=== PATIENT | female | born 1990 | race Caucasian/White ===

== ENCOUNTER 2017-05-10 13:32 | Emergency (ER) | payer BC ==
--- NOTE | 2017-05-10 15:03 | ER Document Report ---
ED Medical Screen (RME) - General Chief Complaint: Vomiting Stated Complaint: VAGINAL BLEEDING Time Seen by Provider: 05/10/17 14:59 Notes: 26-year-old female patient who was put on Provera by her [facility] doctor in [place] to bring on a period. LMP was over a year ago. She stopped the Provera 8 days ago. She has been having very heavy bleeding since then. She is complaining of nausea and vomiting for the past 4 days. I have greeted and performed a rapid initial assessment of this patient. A comprehensive ED assessment and evaluation of the patient, analysis of test results and completion of the medical decision making process will be conducted by additional ED providers. TRAVEL OUTSIDE OF THE [place] IN LAST 30 DAYS: No - Related Data Allergies/Adverse Reactions: amoxicillin Allergy (Verified 05/10/17 13:51) clavulanic acid [From Augmentin] Allergy (Verified 05/10/17 13:51) Penicillins Allergy (Verified 05/10/17 13:51) Past Medical History Renal/ Medical History: Denies: Hx Peritoneal Dialysis Physical Exam - Vital signs Vitals: Temp Pulse Resp BP Pulse Ox 98.6 F 97 13 125/87 H 100 05/10/17 13:51 05/10/17 13:51 05/10/17 13:51 05/10/17 13:51 05/10/17 13:51 Course - Vital Signs Vital signs: Temp Pulse Resp BP Pulse Ox 98.6 F 97 13 125/87 H 100 05/10/17 13:51 05/10/17 13:51 05/10/17 13:51 05/10/17 13:51 05/10/17 13:51
[2017-05-10] MEDS ORDERED: ONDANSETRON 4 MG TAB.RAPDIS PO ONE (15:04)
[2017-05-10] MEDS ORDERED: METOCLOPRAMIDE HCL 10 MG TABLET PO ONE (15:04)
[2017-05-10 15:42] LABS: ABSOLUTE BASOPHILS # (AUTO) 0.1 10^3/uL (0.0-0.2); ABSOLUTE EOSINOPHILS # (AUTO) 0.4 10^3/uL (0.0-0.6); ABSOLUTE LYMPHOCYTES (AUTO) 3.2 10^3/uL (0.5-4.7); ABSOLUTE MONOCYTES (AUTO) 0.7 10^3/uL (0.1-1.4); ABSOLUTE NEUT (AUTO) 5.5 10^3/uL (1.7-8.2); BASOPHILS % (AUTO) 0.7 % (0-2); EOSINOPHILS % (AUTO) 3.8 % (0-6); HEMATOCRIT 42.2 % (36.0-47.0); HEMOGLOBIN 13.9 g/dL (12.0-15.5); HGB HCT DIFFERENCE -0.5; LYMPHOCYTES % (AUTO) 32.2 % (13-45); MEAN CORPUSCULAR HEMOGLOBIN 28.8 pg (27.0-33.4); MEAN CORPUSCULAR HGB CONC 32.9 g/dL (32.0-36.0); MEAN CORPUSCULAR VOLUME 88 fl (80-97); MONOCYTES % (AUTO) 6.9 % (3-13); RED BLOOD COUNT 4.82 10^6/uL (3.72-5.28); RED CELL DISTRIBUTION WIDTH 13.4 % (11.5-14.0); SEGMENTED NEUTROPHILS % (AUTO) 56.4 % (42-78); WHITE BLOOD COUNT 9.8 10^3/uL (4.0-10.5)
[2017-05-10 16:04] LABS: ALANINE AMINOTRANSFERASE 75 U/L (9-52); ALBUMIN 4.3 g/dL (3.5-5.0); ALKALINE PHOSPHATASE 70 U/L (38-126); ANION GAP 12 (5-19); ASPARTATE AMINO TRANSFERASE 31 U/L (14-36); BILIRUBIN,DIRECT 0.3 mg/dL (0.0-0.4); BILIRUBIN,TOTAL 0.5 mg/dL (0.2-1.3); BLOOD UREA NITROGEN 9 mg/dL (7-20); CALCIUM 9.5 mg/dL (8.4-10.2); CARBON DIOXIDE 25 mmol/L (22-30); CHLORIDE 106 mmol/L (98-107); CREATININE RESULT 0.62 mg/dL (0.52-1.25); GLUCOSE 92 mg/dL (75-110); POTASSIUM 4.2 mmol/L (3.6-5.0); SODIUM 142.8 mmol/L (137-145)
[2017-05-10 16:57] VITALS: BP 111/69
--- NOTE | 2017-05-10 18:45 | ER Document Report ---
ED GI/ - General Chief Complaint: Vomiting Stated Complaint: VAGINAL BLEEDING Time Seen by Provider: 05/10/17 14:59 TRAVEL OUTSIDE OF THE [place] IN LAST 30 DAYS: No - Related Data Allergies/Adverse Reactions: amoxicillin Allergy (Verified 05/10/17 13:51) clavulanic acid [From Augmentin] Allergy (Verified 05/10/17 13:51) Penicillins Allergy (Verified 05/10/17 13:51) Past Medical History - Social History Smoking Status: Current Every Day Smoker Chew tobacco use (# tins/day): No Frequency of alcohol use: None Drug Abuse: None Patient has suicidal ideation: No Patient has homicidal ideation: No Renal/ Medical History: Denies: Hx Peritoneal Dialysis Physical Exam - Vital signs Vitals: Temp Pulse Resp BP Pulse Ox 98.6 F 97 13 125/87 H 100 05/10/17 13:51 05/10/17 13:51 05/10/17 13:51 05/10/17 13:51 05/10/17 13:51 Course - Vital Signs Vital signs: Temp Pulse Resp BP Pulse Ox 97.7 F 77 12 111/69 100 05/10/17 16:54 05/10/17 16:54 05/10/17 16:58 05/10/17 16:54 05/10/17 16:54 - Laboratory Result Diagrams: 05/10/17 15:20 05/10/17 15:20 Laboratory results interpreted by me: 05/10/17 15:20 ALT 75 H
--- NOTE | 2017-05-10 19:09 | ER Document Report ---
Doctor's Note Notes: 05/10/17 19:09 Patient seen in triage. [place] better. Wanted to leave. Ambulated easily out of dept.
== END 2017-05-10 17:00 | disposition left against medical advice (07) ==
LOC: ER 13:32
DX: Z53.9 Procedure and treatment not carried out, unspecified reason (principal); R11.10 Vomiting, unspecified; N93.9 Abnormal uterine and vaginal bleeding, unspecified; Z79.899 Other long term (current) drug therapy
CPT/HCPCS: 99281; 36415; 85025; 80053; S0119